=== PATIENT | female | born 1990 | race American Indian/Alaskan Native ===

== ENCOUNTER 2018-10-30 14:10 | Emergency (ER) | payer SELFPAY ==
[2018-10-30] MEDS ORDERED: DUONEB *Not for PRN Use IH ONE (14:20)
[2018-10-30] MEDS ORDERED: ATROVENT IH ONE (14:33)
[2018-10-30] MEDS ORDERED: PROVENTIL IH ONE (14:33)
[2018-10-30] MEDS ORDERED: NACL 0.9% 1000 ML 1,000 ML IV ONE (14:33)
[2018-10-30] MEDS ORDERED: SOLU-Medrol IV ONE (14:34)
[2018-10-30] MEDS ORDERED: MAGNESIUM SULFATE 1 GM in NACL 0.9% 50 ML IV ONE (15:00)
--- NOTE | 2018-10-30 16:12 | XRay Report ---
FINAL REPORT EXAM: XR CHEST 1V AP HISTORY: cough wheeze TECHNIQUE: AP portable view of the chest PRIORS: None. FINDINGS: Lines, tubes, and devices: N/A Lungs and pleura: Trachea is normal in position. Lungs are clear of infiltrate, pleural effusion, vas cular congestion, or pneumothorax. Cardiomediastinal silhouette: Cardiac and mediastinal silhouettes are unremarkable. Other: Bony structures are intact. IMPRESSION: No acute cardiopulmonary process seen.
[2018-10-30 16:51] LABS: Alanine Aminotransferase 9 units/L (7-56); Albumin 3.8 g/dL (3.9-5); BUN/Creatinine Ratio 10; Blood Urea Nitrogen 7 mg/dL (7-17); Calcium 8.6 mg/dL (8.4-10.2); Hemolysis Index 26
[2018-10-30 17:34] VITALS: BP 133/76
--- NOTE | 2018-10-30 17:58 | Emergency Department Report ---
ED Asthma HPI - General Chief Complaint: Adult Asthma Stated Complaint: ASTHMA Time Seen by Provider: 10/30/18 14:33 Source: patient Mode of arrival: Ambulatory Limitations: No Limitations - History of Present Illness Initial Comments: Patient is a 28 year after a female who is here secondary to wheezing. Patient has had some shortness of breath with wheeze for the past 3-5 days. Patient has an albuterol inhaler and nebulizer machine at home but states they're not helping her symptoms. Patient had a cough is nonproductive. Patient denies any chest pain abdominal pain nausea vomiting or diarrhea at this time. Patient has been intubated in the past secondary to an asthma attack - Related Data Previous Rx's Medication Instructions Recorded Last Taken Type ALBUTEROL Inhaler (OR & NICU) 2 puff IH QID PRN #1 inhalation 10/30/18 Unknown Rx [ProAir HFA Inhaler] predniSONE [Deltasone] 10 mg PO .TAPER #21 tab 10/30/18 Unknown Rx Allergies Allergy/AdvReac Type Severity Reaction Status Date / Time No Known Allergies Allergy Verified 10/30/18 16:26 ED Review of Systems ROS: Stated complaint: ASTHMA Other details as noted in HPI Comment: All other systems reviewed and negative ED Past Medical Hx - Past Medical History Previous Medical History?: Yes Hx Asthma: Yes - Surgical History Past Surgical History?: No - Social History Smoking Status: Never Smoker Substance Use Type: None - Medications Home Medications: Home Medications Medication Instructions Recorded Confirmed Last Taken Type ALBUTEROL Inhaler (OR & NICU) 2 puff IH QID PRN #1 inhalation 10/30/18 Unknown Rx [ProAir HFA Inhaler] predniSONE [Deltasone] 10 mg PO .TAPER #21 tab 10/30/18 Unknown Rx ED Physical Exam - General Limitations: No Limitations General appearance: alert, in distress - Head Head exam: Present: atraumatic, normocephalic - Eye Eye exam: Present: normal appearance, PERRL, EOMI - ENT ENT exam: Present: mucous membranes moist - Neck Neck exam: Present: normal inspection - Respiratory Respiratory exam: Present: wheezes. Absent: normal lung sounds bilaterally, respiratory distress, rales, rhonchi, stridor - Cardiovascular Cardiovascular Exam: Present: regular rate, normal rhythm. Absent: systolic murmur, diastolic murmur, rubs, gallop - GI/Abdominal GI/Abdominal exam: Present: soft, normal bowel sounds. Absent: distended, tenderness, guarding, rebound, rigid - Extremities Exam Extremities exam: Present: normal inspection - Back Exam Back exam: Present: normal inspection - Neurological Exam Neurological exam: Present: alert, oriented X3 - Psychiatric Psychiatric exam: Present: normal affect, normal mood - Skin Skin exam: Present: warm, dry, intact, normal color. Absent: rash ED Course Vital Signs 10/30/18 10/30/18 10/30/18 14:13 14:44 16:24 Temperature 98.0 F Pulse Rate 110 H 74 Pulse Rate [ 109 H Anterior Bilateral Throughout] Respiratory 24 16 Rate Respiratory 25 H Rate [Anterior Bilateral Throughout] Blood Pressure 129/65 Blood Pressure 109/68 [Left] O2 Sat by Pulse 97 100 Oximetry 10/30/18 10/30/18 10/30/18 16:27 16:29 17:34 Temperature Pulse Rate 78 68 Pulse Rate [ 76 Anterior Bilateral Throughout] Respiratory 18 16 Rate Respiratory 18 Rate [Anterior Bilateral Throughout] Blood Pressure 109/65 Blood Pressure 133/76 [Left] O2 Sat by Pulse 99 96 Oximetry ED Medical Decision Making - Lab Data Result diagrams: 10/30/18 15:47 Labs 10/30/18 15:47 Sodium 140 Potassium 4.1 Chloride 107.9 H Carbon Dioxide 16 L Anion Gap 20 BUN 7 Creatinine 0.7 Estimated GFR > 60 BUN/Creatinine Ratio 10 Glucose 89 Calcium 8.6 Total Bilirubin 0.30 AST 16 ALT 9 Alkaline Phosphatase 61 Total Protein 6.9 Albumin 3.8 L Albumin/Globulin Ratio 1.2 - Medical Decision Making Patient was started on BiPAP and received hour-long nebulizer treatment. Patient is wheezing improved dramatically. Patient was then weaned off of BiPAP and also weaned off nasal cannula. The patient was monitored and is feeling much improved. Critical care attestation.: If time is entered above; I have spent that time in minutes in the direct care of this critically ill patient, excluding procedure time. ED Disposition Clinical Impression: Asthma Qualifiers: Asthma severity: moderate Asthma complication type: with acute exacerbation Disposition: TO HOME OR SELFCARE Is pt being admited?: No Does the pt Need Aspirin: No Condition: Stable Instructions: Asthma (ED) Referrals: PRIMARY CARE, [Primary Care Provider] - 3-5 Days Time of Disposition: 17:56
== END 2018-10-30 18:41 | disposition home or self-care (01) ==
LOC: ED 14:10
DX: J45.909 Unspecified asthma, uncomplicated (principal)
CPT/HCPCS: 36415; 71045; 80053; 94640; 96365; 96375; 99284; J2930; J3475; J7030

== ENCOUNTER 2018-12-04 16:38 | Emergency (ER) | payer SELFPAY ==
--- NOTE | 2018-12-04 17:03 | Emergency Department Report ---
Chief Complaint: Adult Asthma Stated Complaint: ASTHMA Time Seen by Provider: 12/04/18 17:02 - HPI History of Present Illness: ASTHMA AE PROAIR/NEB PMH ASTHMA ALLERGIES PSH NONE MSE COMPLETED MSE screening note: Focused history and physical exam performed. Due to findings the following was ordered: ED Disposition for MSE Condition: Stable
[2018-12-04 17:04] VITALS: BP 122/79
--- NOTE | 2018-12-04 17:04 | Emergency Department Report ---
Minor Respiratory - HPI Chief Complaint: Adult Asthma Stated Complaint: ASTHMA Time Seen by Provider: 12/04/18 17:02 Duration: 3 Days Pain Location: Chest Severity: mild Minor Respiratory: Yes Able to Tolerate Fluids, Yes Cough, No Rhinorrhea, No Sore Throat, No Ear Pain, No Sick Contacts, No Hemoptysis, No Chest Pain, No Shortness of Breath, No Fever Other History: 28 YO HERE FOR HER ASTHMA MEDS. NO FEVER. NO SPUTUM. ON PROAIR/NEB ED Review of Systems ROS: Stated complaint: ASTHMA Other details as noted in HPI Comment: All other systems reviewed and negative Constitutional: denies: chills, fever Eyes: denies: eye pain ENT: denies: ear pain Respiratory: see HPI, cough, wheezing. denies: orthopnea Cardiovascular: denies: palpitations Endocrine: denies: excessive sweating Gastrointestinal: denies: abdominal pain Genitourinary: denies: dysuria Musculoskeletal: denies: as per HPI Skin: denies: rash Neurological: denies: weakness Psychiatric: denies: depression Hematological/Lymphatic: denies: easy bleeding ED Past Medical Hx - Past Medical History Hx Asthma: Yes - Social History Smoking Status: Never Smoker Substance Use Type: None - Medications Home Medications: Home Medications Medication Instructions Recorded Confirmed Last Taken Type ALBUTEROL Inhaler (OR & NICU) 2 puff IH QID PRN #1 inhalation 12/04/18 Unknown Rx [ProAir HFA Inhaler] Albuterol Sulfate 1.25 mg IH BID PRN #1 box 12/04/18 Unknown Rx Minor Respiratory Exam - Exam General: Vital signs noted. No distress. Alert and acting appropriately. HEENT: Yes Moist Mucous Membranes, No Pharyngeal Erythema, No Pharyngeal Exudates, No Rhinorrhea, No Conjuctival Injection, No Frontal Tenderness, No Maxillary Tenderness Ear: Neither TM Bulge, Neither TM Erythema, Neither EAC Pain, Neither EAC Discharge Neck: Yes Supple, No Adenopathy Lungs: Yes Good Air Exchange, No Wheezes, No Ronchi, No Stridor, No Cough, No Labored Respirations, No Retractions, No Use of Accessory Muscles, No Other Abnormal Lung Sounds Heart: Yes Regular, No Murmur Abdomen: Yes Normal Bowel Sounds, No Tenderness, No Peritoneal Signs Skin: No Rash, No Edema Neurologic: Alert and oriented, no deficits. Musculoskeletal: Unremarkable. ED Course Vital Signs 12/04/18 17:02 Temperature 97.7 F Pulse Rate 75 Respiratory 16 Rate Blood Pressure 122/79 O2 Sat by Pulse 100 Oximetry ED Medical Decision Making - Medical Decision Making MED REFILL Critical care attestation.: If time is entered above; I have spent that time in minutes in the direct care of this critically ill patient, excluding procedure time. ED Disposition Clinical Impression: Asthma, Medication refill Disposition: DC- TO HOME OR SELFCARE Is pt being admited?: No Does the pt Need Aspirin: No Condition: Stable Instructions: Asthma (ED) Prescriptions: ALBUTEROL Inhaler (OR & NICU) [ProAir HFA Inhaler] 2 puff IH QID PRN #1 inhalation PRN Reason: Shortness Of Breath Albuterol Sulfate 1.25 mg IH BID PRN #1 box PRN Reason: Wheezing Referrals: [facility] [Outside] - 3-5 Days Time of Disposition: 17:06
== END 2018-12-04 17:20 | disposition home or self-care (01) ==
LOC: ED 16:38
DX: J45.909 Unspecified asthma, uncomplicated (principal); Z76.0 Encounter for issue of repeat prescription
CPT/HCPCS: 99282

== ENCOUNTER 2018-12-18 12:23 | Emergency (ER) | payer OTHER ==
[2018-12-18] MEDS ORDERED: SOLU-Medrol IM ONE (12:39)
[2018-12-18] MEDS ORDERED: PROVENTIL IH ONE (12:39)
[2018-12-18 12:40] VITALS: BP 113/81
--- NOTE | 2018-12-18 12:40 | Emergency Department Report ---
Chief Complaint: Adult Asthma Stated Complaint: ASTHMA Time Seen by Provider: 12/18/18 12:37 - HPI History of Present Illness: lmp 1 w ago no cig/etoh/drug pmh asthma psh none rx out of inhaler neb asthma AE wheezing but sats are good. MSE Completed MSE screening note: Focused history and physical exam performed. Due to findings the following was ordered: ED Disposition for MSE Condition: Stable
--- NOTE | 2018-12-18 13:13 | Emergency Department Report ---
Minor Respiratory - HPI Chief Complaint: Adult Asthma Stated Complaint: ASTHMA Time Seen by Provider: 12/18/18 12:37 Duration: 1 Day Pain Location: Chest Severity: moderate Minor Respiratory: Yes Able to Tolerate Fluids, Yes Shortness of Breath, No Rhinorrhea, No Sore Throat, No Ear Pain, No Cough, No Sick Contacts, No Hemoptysis, No Chest Pain, No Fever Other History: 28 YO FEMALE WITH CC SOB- ASTHMATIC OUT OF HER INHALERS. NO FEVER. ED Review of Systems ROS: Stated complaint: ASTHMA Other details as noted in HPI Comment: All other systems reviewed and negative Eyes: denies: eye pain ENT: denies: throat pain Respiratory: see HPI, cough, shortness of breath, wheezing Cardiovascular: denies: chest pain Endocrine: denies: excessive sweating Gastrointestinal: denies: nausea Genitourinary: denies: urgency Musculoskeletal: denies: back pain Skin: denies: as per HPI, lesions Neurological: denies: weakness Hematological/Lymphatic: denies: easy bleeding ED Past Medical Hx - Past Medical History Previous Medical History?: Yes Hx Asthma: Yes - Surgical History Past Surgical History?: No - Family History Family history: no significant - Social History Smoking Status: Never Smoker Substance Use Type: None - Medications Home Medications: Home Medications Medication Instructions Recorded Confirmed Last Taken Type ALBUTEROL Inhaler (OR & NICU) 2 puff IH QID PRN #1 inhalation 12/18/18 Unknown Rx [ProAir HFA Inhaler] Albuterol Sulfate 1.25 mg IH BID PRN #1 box 12/18/18 Unknown Rx Albuterol Sulfate [Ventolin HFA] 2 puff IH Q4H PRN #1 hfa.aer.ad 12/18/18 Unknown Rx Azithromycin [Zithromax Z-MANISH] 250 mg PO DAILY #6 tablet 12/18/18 Unknown Rx predniSONE [Deltasone] 20 mg PO DAILY #5 tablet 12/18/18 Unknown Rx Minor Respiratory Exam - Exam General: Vital signs noted. No distress. Alert and acting appropriately. HEENT: Yes Moist Mucous Membranes, No Pharyngeal Erythema, No Pharyngeal Exudates, No Rhinorrhea, No Conjuctival Injection, No Frontal Tenderness, No Maxillary Tenderness Ear: Neither TM Bulge, Neither TM Erythema, Neither EAC Pain, Neither EAC Discharge Neck: Yes Supple, No Adenopathy Lungs: Yes Good Air Exchange, Yes Wheezes (B), No Ronchi, No Stridor, No Cough, No Labored Respirations, No Retractions, No Use of Accessory Muscles, No Other Abnormal Lung Sounds Heart: Yes Regular, No Murmur Abdomen: Yes Normal Bowel Sounds, No Tenderness, No Peritoneal Signs Skin: No Rash, No Edema Neurologic: Alert and oriented, no deficits. Musculoskeletal: Unremarkable. ED Course Vital Signs 12/18/18 12/18/18 12:38 12:55 Temperature 97.7 F Pulse Rate 62 Pulse Rate [ 59 L Anterior Bilateral Throughout] Respiratory 24 Rate Respiratory 20 Rate [Anterior Bilateral Throughout] Blood Pressure 113/81 O2 Sat by Pulse 100 Oximetry ED Medical Decision Making - Medical Decision Making DUONEB SOLUMEDROL NO FEVER COUGH WITHOUT PURULENT SPUTUM TREATED IN TRIAGE WHEEZING DEC P RT TREATMENT- CTA BILATERAL SAT 100% ROOM AIR DC HOME WITH DC PLAN OF CARE Critical care attestation.: If time is entered above; I have spent that time in minutes in the direct care of this critically ill patient, excluding procedure time. ED Disposition Clinical Impression: Asthma, Medication refill Disposition: DC-01 TO HOME OR SELFCARE Is pt being admited?: No Does the pt Need Aspirin: No Condition: Stable Instructions: Asthma (ED) Additional Instructions: DIET TOLERATED MEDS ORDERED TODAY FOLLOW UP WITH PCP REFERRAL BELOW AVOID TRIGGERS NEBULIZER AND INHALER PRESCRIBED Prescriptions: Albuterol Sulfate 1.25 mg IH BID PRN #1 box PRN Reason: Wheezing predniSONE [Deltasone] 20 mg PO DAILY #5 tablet ALBUTEROL Inhaler (OR & NICU) [ProAir HFA Inhaler] 2 puff IH QID PRN #1 inhalation PRN Reason: Shortness Of Breath Albuterol Sulfate [Ventolin HFA] 2 puff IH Q4H PRN #1 hfa.aer.ad PRN Reason: Shortness Of Breath Azithromycin [Zithromax Z-MANISH] 250 mg PO DAILY #6 tablet Referrals: LONNY GONZALEZ MD [Primary Care Provider] - 3-5 Days Time of Disposition: 13:15
== END 2018-12-18 13:32 | disposition home or self-care (01) ==
LOC: ED 12:23
DX: J45.909 Unspecified asthma, uncomplicated (principal); Z76.0 Encounter for issue of repeat prescription
CPT/HCPCS: 94640; 96372; 99282; J2930

== ENCOUNTER 2019-01-17 12:05 | Emergency (ER) | payer OTHER ==
[2019-01-17 12:20] VITALS: BP 120/65
--- NOTE | 2019-01-17 12:23 | Emergency Department Report ---
ED Recheck HPI - General Chief Complaint: Recheck/Abnormal Lab/Rx Stated Complaint: MEDICATION REFILL Time Seen by Provider: 01/17/19 12:18 Source: patient Mode of arrival: Ambulatory Limitations: No Limitations - History of Present Illness Initial Comments: This is a 28-year-old female that presents to the ED for medication refill. Patient stated has been out of her medications of albuterol inhaler. Denies any shortness of breathe, fever, chills, headache, nausea, vomiting, chest pain or SOB. Patient denies any wheezing. Denies any allergies. Denies any symptoms or any other complaints. MD Complaint: medication refill request -: days(s) Returns Today for: request for prescription Symptoms Since Prior Visit: no new symptoms Associated Symptoms: none. denies: fever, chills, chest pain, shortness of breath, rash, malaise, nasuea, abdominal pain - Related Data Previous Rx's Medication Instructions Recorded Last Taken Type ALBUTEROL Inhaler (OR & NICU) 2 puff IH QID PRN #1 inhalation 12/18/18 Unknown Rx [ProAir HFA Inhaler] Albuterol Sulfate 1.25 mg IH BID PRN #1 box 12/18/18 Unknown Rx Albuterol Sulfate [Ventolin HFA] 2 puff IH Q4H PRN #1 hfa.aer.ad 12/18/18 Unknown Rx Azithromycin [Zithromax Z-MANISH] 250 mg PO DAILY #6 tablet 12/18/18 Unknown Rx predniSONE [Deltasone] 20 mg PO DAILY #5 tablet 12/18/18 Unknown Rx ALBUTEROL Inhaler(NF) [VENTOLIN 2 puff IH Q4-6H PRN #1 inha 01/17/19 Unknown Rx Inhaler(NF)] ALBUTEROL NEB's [Proventil 0.083% 2.5 mg IH TID PRN #1 box 01/17/19 Unknown Rx NEBS] Allergies Allergy/AdvReac Type Severity Reaction Status Date / Time No Known Allergies Allergy Verified 10/30/18 16:26 ED Review of Systems ROS: Stated complaint: MEDICATION REFILL Other details as noted in HPI Constitutional: denies: chills, fever Eyes: denies: eye pain, eye discharge, vision change ENT: denies: ear pain, throat pain Respiratory: denies: cough, shortness of breath, wheezing Cardiovascular: denies: chest pain, palpitations Endocrine: no symptoms reported Gastrointestinal: denies: abdominal pain, nausea, diarrhea Genitourinary: denies: urgency, dysuria, discharge Musculoskeletal: denies: back pain, joint swelling, arthralgia Skin: denies: rash, lesions Neurological: denies: headache, weakness, paresthesias Psychiatric: denies: anxiety, depression Hematological/Lymphatic: denies: easy bleeding, easy bruising ED Past Medical Hx - Past Medical History Hx Asthma: Yes - Social History Smoking Status: Never Smoker Substance Use Type: None - Medications Home Medications: Home Medications Medication Instructions Recorded Confirmed Last Taken Type ALBUTEROL Inhaler (OR & NICU) 2 puff IH QID PRN #1 inhalation 12/18/18 Unknown Rx [ProAir HFA Inhaler] Albuterol Sulfate 1.25 mg IH BID PRN #1 box 12/18/18 Unknown Rx Albuterol Sulfate [Ventolin HFA] 2 puff IH Q4H PRN #1 hfa.aer.ad 12/18/18 Unknown Rx Azithromycin [Zithromax Z-MANISH] 250 mg PO DAILY #6 tablet 12/18/18 Unknown Rx predniSONE [Deltasone] 20 mg PO DAILY #5 tablet 12/18/18 Unknown Rx ALBUTEROL Inhaler(NF) [VENTOLIN 2 puff IH Q4-6H PRN #1 inha 01/17/19 Unknown Rx Inhaler(NF)] ALBUTEROL NEB's [Proventil 0.083% 2.5 mg IH TID PRN #1 box 01/17/19 Unknown Rx NEBS] ED Physical Exam - General Limitations: No Limitations General appearance: alert, in no apparent distress - Head Head exam: Present: atraumatic, normocephalic - Neck Neck exam: Present: normal inspection, full ROM - Respiratory Respiratory exam: Present: normal lung sounds bilaterally. Absent: respiratory distress, wheezes, rales, rhonchi, stridor, chest wall tenderness, accessory muscle use, decreased breath sounds, prolonged expiratory - Cardiovascular Cardiovascular Exam: Present: regular rate, normal rhythm, normal heart sounds. Absent: bradycardia, tachycardia, irregular rhythm, systolic murmur, diastolic murmur, rubs, gallop - Extremities Exam Extremities exam: Present: normal inspection, full ROM - Back Exam Back exam: Present: normal inspection, full ROM - Neurological Exam Neurological exam: Present: alert, oriented X3 - Psychiatric Psychiatric exam: Present: normal affect, normal mood - Skin Skin exam: Present: warm, dry, intact, normal color. Absent: rash ED Course - Reevaluation(s) Reevaluation #1: 01/17/19 12:21 Patient is speaking in full sentences with no signs of distress noted. Critical care attestation.: If time is entered above; I have spent that time in minutes in the direct care of this critically ill patient, excluding procedure time. ED Disposition Clinical Impression: Medication refill Disposition: DC-01 TO HOME OR SELFCARE Is pt being admited?: No Does the pt Need Aspirin: No Condition: Stable Instructions: Asthma (ED) Additional Instructions: Follow-up with a primary care doctor in 3-5 days or if symptoms worsen and continue return to emergency room as soon as possible. Prescriptions: ALBUTEROL NEB's [Proventil 0.083% NEBS] 2.5 mg IH TID PRN #1 box PRN Reason: Wheezing ALBUTEROL Inhaler(NF) [VENTOLIN Inhaler(NF)] 2 puff IH Q4-6H PRN #1 inha PRN Reason: shortness of breathe Referrals: PRIMARY CARE, [Referring] - 3-5 Days EVERETTE JOHNSON MD [Staff Physician] - 3-5 Days [facility] [place] [Outside] - 3-5 Days [facility] [Outside] - 3-5 Days Forms: Work/School Release Form(ED)
== END 2019-01-17 12:30 | disposition home or self-care (01) ==
LOC: ED 12:05
DX: J45.909 Unspecified asthma, uncomplicated (principal); Z76.0 Encounter for issue of repeat prescription
CPT/HCPCS: 99282

== ENCOUNTER 2019-02-15 09:46 | Emergency (ER) | payer OTHER ==
[2019-02-15 09:57] VITALS: BP 121/77
--- NOTE | 2019-02-15 11:35 | Emergency Department Report ---
Chief Complaint: Adult Asthma Stated Complaint: ASTHMA Time Seen by Provider: 02/15/19 11:34 - HPI History of Present Illness: MED REFILL ASTHMA - Exam Vital Signs: Vital Signs 02/15/19 09:56 Temperature 98.4 F Pulse Rate 57 L Respiratory 16 Rate Blood Pressure 121/77 [Right] O2 Sat by Pulse 100 Oximetry MSE screening note: Focused history and physical exam performed. Due to findings the following was ordered: ED Disposition for MSE Condition: Stable Referrals: KEYA RAUSCH MD [Primary Care Provider] - 3-5 Days
--- NOTE | 2019-02-15 11:56 | Emergency Department Report ---
ED Asthma HPI - General Chief Complaint: Adult Asthma Stated Complaint: ASTHMA Time Seen by Provider: 02/15/19 11:34 Source: patient Mode of arrival: Ambulatory Limitations: No Limitations - History of Present Illness Initial Comments: Patient is a 28-year-old [place] female who is presenting status post asthma exacerbation. Patient took her last albuterol treatment at home prior to arrival. Patient is been having cough congestion for the last several days. Patient denies any fevers chills at this time. Patient is in need of refill of her medications. - Related Data Previous Rx's Medication Instructions Recorded Last Taken Type ALBUTEROL Inhaler (OR & NICU) 2 puff IH QID PRN #1 inhalation 12/18/18 Unknown Rx [ProAir HFA Inhaler] Albuterol Sulfate 1.25 mg IH BID PRN #1 box 12/18/18 Unknown Rx Albuterol Sulfate [Ventolin HFA] 2 puff IH Q4H PRN #1 hfa.aer.ad 12/18/18 Unknown Rx Azithromycin [Zithromax Z-MANISH] 250 mg PO DAILY #6 tablet 12/18/18 Unknown Rx predniSONE [Deltasone] 20 mg PO DAILY #5 tablet 12/18/18 Unknown Rx ALBUTEROL Inhaler(NF) [VENTOLIN 2 puff IH Q4-6H PRN #1 inha 01/17/19 Unknown Rx Inhaler(NF)] ALBUTEROL NEB's [Proventil 0.083% 2.5 mg IH TID PRN #1 box 01/17/19 Unknown Rx NEBS] ALBUTEROL Inhaler(NF) [VENTOLIN 2 puff IH Q4HRT #1 inha 02/15/19 Unknown Rx Inhaler(NF)] ALBUTEROL NEB's [Proventil 0.083% 2.5 mg IH TID PRN #20 neb 02/15/19 Unknown Rx NEBS] predniSONE [Deltasone] 20 mg PO QDAY #5 tab 02/15/19 Unknown Rx Allergies Allergy/AdvReac Type Severity Reaction Status Date / Time No Known Allergies Allergy Verified 02/15/19 09:47 ED Review of Systems ROS: Stated complaint: ASTHMA Other details as noted in HPI Comment: All other systems reviewed and negative ED Past Medical Hx - Past Medical History Hx Asthma: Yes - Surgical History Past Surgical History?: No - Social History Smoking Status: Never Smoker Substance Use Type: None - Medications Home Medications: Home Medications Medication Instructions Recorded Confirmed Last Taken Type ALBUTEROL Inhaler (OR & NICU) 2 puff IH QID PRN #1 inhalation 12/18/18 Unknown Rx [ProAir HFA Inhaler] Albuterol Sulfate 1.25 mg IH BID PRN #1 box 12/18/18 Unknown Rx Albuterol Sulfate [Ventolin HFA] 2 puff IH Q4H PRN #1 hfa.aer.ad 12/18/18 Unknown Rx Azithromycin [Zithromax Z-MANISH] 250 mg PO DAILY #6 tablet 12/18/18 Unknown Rx predniSONE [Deltasone] 20 mg PO DAILY #5 tablet 12/18/18 Unknown Rx ALBUTEROL Inhaler(NF) [VENTOLIN 2 puff IH Q4-6H PRN #1 inha 01/17/19 Unknown Rx Inhaler(NF)] ALBUTEROL NEB's [Proventil 0.083% 2.5 mg IH TID PRN #1 box 01/17/19 Unknown Rx NEBS] ALBUTEROL Inhaler(NF) [VENTOLIN 2 puff IH Q4HRT #1 inha 02/15/19 Unknown Rx Inhaler(NF)] ALBUTEROL NEB's [Proventil 0.083% 2.5 mg IH TID PRN #20 neb 02/15/19 Unknown Rx NEBS] predniSONE [Deltasone] 20 mg PO QDAY #5 tab 02/15/19 Unknown Rx ED Physical Exam - General Limitations: No Limitations General appearance: alert, in no apparent distress - Head Head exam: Present: atraumatic, normocephalic - Eye Eye exam: Present: normal appearance - ENT ENT exam: Present: mucous membranes moist - Neck Neck exam: Present: normal inspection - Respiratory Respiratory exam: Present: normal lung sounds bilaterally. Absent: respiratory distress, wheezes, rales, rhonchi - Cardiovascular Cardiovascular Exam: Present: regular rate, normal rhythm. Absent: systolic murmur, diastolic murmur, rubs, gallop - GI/Abdominal GI/Abdominal exam: Present: soft, normal bowel sounds. Absent: distended, tenderness, guarding, rebound - Extremities Exam Extremities exam: Present: normal inspection - Back Exam Back exam: Present: normal inspection - Neurological Exam Neurological exam: Present: alert, oriented X3 - Psychiatric Psychiatric exam: Present: normal affect, normal mood - Skin Skin exam: Present: warm, dry, intact, normal color. Absent: rash ED Course Vital Signs 02/15/19 09:56 Temperature 98.4 F Pulse Rate 57 L Respiratory 16 Rate Blood Pressure 121/77 [Right] O2 Sat by Pulse 100 Oximetry ED Medical Decision Making - Medical Decision Making Patient be restarted on her albuterol and patient be discharged home. Critical care attestation.: If time is entered above; I have spent that time in minutes in the direct care of this critically ill patient, excluding procedure time. ED Disposition Clinical Impression: Asthma exacerbation Qualifiers: Asthma severity: mild Asthma persistence: intermittent Qualified Code(s): J45.21 - Mild intermittent asthma with (acute) exacerbation Disposition: -01 TO HOME OR SELFCARE Is pt being admited?: No Does the pt Need Aspirin: No Condition: Stable Instructions: Asthma (ED) Referrals: KEYA RAUSCH MD [Primary Care Provider] - 3-5 Days Time of Disposition: 11:56
== END 2019-02-15 12:23 | disposition home or self-care (01) ==
LOC: ED 09:46
DX: J45.901 Unspecified asthma with (acute) exacerbation (principal)
CPT/HCPCS: 99281

== ENCOUNTER 2019-03-26 21:59 | Emergency (ER) | payer SELFPAY ==
[2019-03-26] MEDS ORDERED: DUONEB *Not for PRN Use IH ONE (22:36)
[2019-03-26] MEDS ORDERED: DELTASONE PO STA (22:36)
--- NOTE | 2019-03-26 22:38 | Emergency Department Report ---
Blank Doc - Documentation Documentation: 28 y/o with uncontrolled asthma and recently ran out of medications presents to ED c/o wheezing and sob. Plan medicaitons and xray. re-evaluation after treatment
--- NOTE | 2019-03-26 23:45 | Emergency Department Report ---
ED Shortness of Breath HPI - General Chief Complaint: Adult Asthma Stated Complaint: SOB Time Seen by Provider: 03/26/19 23:30 Source: patient Mode of arrival: Ambulatory Limitations: No Limitations - History of Present Illness Initial Comments: Patient is a 28-year-old female that presents emergency room for shortness of breath or wheezing. Patient states she has asthma but ran out of her asthma medications one week ago. Patient states she has not seen a doctor since moving here a year ago. Patient states she's just been seen in the ER for refills of her asthma medications. Patient states her shortness of breath is better with rest and medications. Patient states that her shortness of breath is worse with exertion. Patient denies chest pain. Patient denies fever. Patient denies chills. Patient denies recent upper respiratory symptoms. Patient states she received a albuterol treatment in triage and she states she feels much better. Patient states her symptoms have resolved. MD Complaint: shortness of breath -: Sudden Severity: severe Consistency: now resolved Improves With: rest, bronchodilators Worsens With: exertion Known History Of: asthma Context: medication noncompliance Associated Symptoms: cough Treatments Prior to Arrival: none - Related Data Home Oxygen Therapy: No Previous Rx's Medication Instructions Recorded Last Taken Type ALBUTEROL Inhaler (OR & NICU) 2 puff IH QID PRN #1 inhalation 12/18/18 Unknown Rx [ProAir HFA Inhaler] Albuterol Sulfate 1.25 mg IH BID PRN #1 box 12/18/18 Unknown Rx Albuterol Sulfate [Ventolin HFA] 2 puff IH Q4H PRN #1 hfa.aer.ad 12/18/18 Unknown Rx Azithromycin [Zithromax Z-MANISH] 250 mg PO DAILY #6 tablet 12/18/18 Unknown Rx predniSONE [Deltasone] 20 mg PO DAILY #5 tablet 12/18/18 Unknown Rx ALBUTEROL Inhaler(NF) [VENTOLIN 2 puff IH Q4-6H PRN #1 inha 01/17/19 Unknown Rx Inhaler(NF)] ALBUTEROL Inhaler(NF) [VENTOLIN 2 puff IH Q4HRT #1 inha 02/15/19 Unknown Rx Inhaler(NF)] ALBUTEROL NEB's [Proventil 0.083% 2.5 mg IH TID PRN #20 neb 02/15/19 Unknown Rx NEBS] predniSONE [Deltasone] 20 mg PO QDAY #5 tab 02/15/19 Unknown Rx ALBUTEROL Inhaler (OR & NICU) 2 puff IH QID PRN #1 inh 03/26/19 Unknown Rx [Proair] ALBUTEROL NEB's [Proventil 0.083% 2.5 mg IH TID PRN #1 box 03/26/19 Unknown Rx NEBS] Allergies Allergy/AdvReac Type Severity Reaction Status Date / Time No Known Allergies Allergy Verified 02/15/19 09:47 ED Review of Systems ROS: Stated complaint: SOB Other details as noted in HPI Constitutional: denies: chills, fever Eyes: denies: eye pain, eye discharge, vision change ENT: denies: ear pain, throat pain Respiratory: cough, shortness of breath, wheezing Cardiovascular: denies: chest pain, palpitations Endocrine: no symptoms reported Gastrointestinal: denies: abdominal pain, nausea, diarrhea Genitourinary: denies: urgency, dysuria, discharge Musculoskeletal: denies: back pain, joint swelling, arthralgia Skin: denies: rash, lesions Neurological: denies: headache, weakness, paresthesias Psychiatric: denies: anxiety, depression Hematological/Lymphatic: denies: easy bleeding, easy bruising ED Past Medical Hx - Past Medical History Previous Medical History?: Yes Hx Asthma: Yes Additional medical history: Bronchitis - Surgical History Past Surgical History?: Yes - Family History Family history: no significant - Social History Smoking Status: Never Smoker Substance Use Type: None - Medications Home Medications: Home Medications Medication Instructions Recorded Confirmed Last Taken Type ALBUTEROL Inhaler (OR & NICU) 2 puff IH QID PRN #1 inhalation 12/18/18 Unknown Rx [ProAir HFA Inhaler] Albuterol Sulfate 1.25 mg IH BID PRN #1 box 12/18/18 Unknown Rx Albuterol Sulfate [Ventolin HFA] 2 puff IH Q4H PRN #1 hfa.aer.ad 12/18/18 Unknown Rx Azithromycin [Zithromax Z-MANISH] 250 mg PO DAILY #6 tablet 12/18/18 Unknown Rx predniSONE [Deltasone] 20 mg PO DAILY #5 tablet 12/18/18 Unknown Rx ALBUTEROL Inhaler(NF) [VENTOLIN 2 puff IH Q4-6H PRN #1 inha 01/17/19 Unknown Rx Inhaler(NF)] ALBUTEROL Inhaler(NF) [VENTOLIN 2 puff IH Q4HRT #1 inha 02/15/19 Unknown Rx Inhaler(NF)] ALBUTEROL NEB's [Proventil 0.083% 2.5 mg IH TID PRN #20 neb 02/15/19 Unknown Rx NEBS] predniSONE [Deltasone] 20 mg PO QDAY #5 tab 02/15/19 Unknown Rx ALBUTEROL Inhaler (OR & NICU) 2 puff IH QID PRN #1 inh 03/26/19 Unknown Rx [Proair] ALBUTEROL NEB's [Proventil 0.083% 2.5 mg IH TID PRN #1 box 03/26/19 Unknown Rx NEBS] ED Physical Exam - General Limitations: No Limitations General appearance: alert, in no apparent distress - Head Head exam: Present: atraumatic, normocephalic - Eye Eye exam: Present: normal appearance - ENT ENT exam: Present: mucous membranes moist - Neck Neck exam: Present: normal inspection - Respiratory Respiratory exam: Present: normal lung sounds bilaterally. Absent: respiratory distress, wheezes, rales, rhonchi - Cardiovascular Cardiovascular Exam: Present: regular rate, normal rhythm. Absent: systolic murmur, diastolic murmur, rubs, gallop - GI/Abdominal GI/Abdominal exam: Present: soft, normal bowel sounds - Extremities Exam Extremities exam: Present: normal inspection - Back Exam Back exam: Present: normal inspection - Neurological Exam Neurological exam: Present: alert, oriented X3 - Psychiatric Psychiatric exam: Present: normal affect, normal mood - Skin Skin exam: Present: warm, dry, intact, normal color. Absent: rash ED Course Vital Signs 03/26/19 03/26/19 03/27/19 22:04 23:41 00:21 Temperature 97.8 F 98 F 98 F Pulse Rate 67 68 66 Respiratory 18 16 16 Rate Blood Pressure 117/75 Blood Pressure 104/68 112/72 [Left] O2 Sat by Pulse 99 99 99 Oximetry - Reevaluation(s) Reevaluation #1: Discussed all results with patient. Patient is stable for discharge. Patient will be discharged home. Patient agrees to plan of care. Patient given discharge instructions. Patient voiced understanding of discharge instructions. 03/26/19 23:47 ED Medical Decision Making - Radiology Data Radiology results: report reviewed interpreted by me: No acute findings on chest x-ray - Medical Decision Making Patient is a 28-year-old female that presents emergency room for shortness of breath and wheezing. Patient received 1 breathing treatment and symptoms improved. Patient essentially came to the ER for refill of her medications. Patient will be given a refill of her albuterol inhaler and nebulizer solutions. Patient's chest x-ray negative. Patient responded well to treatment. Patient stable on discharge. Patient was discharged home. Patient given discharge instructions. - Differential Diagnosis shortness of breath. Noncompliance. Asthma. Wheezing. Critical care attestation.: If time is entered above; I have spent that time in minutes in the direct care of this critically ill patient, excluding procedure time. ED Disposition Clinical Impression: SOB (shortness of breath) Asthma Qualifiers: Asthma severity: mild Asthma persistence: intermittent Asthma complication type: uncomplicated Qualified Code(s): J45.20 - Mild intermittent asthma, uncomplicated Disposition: TO HOME OR SELFCARE Is pt being admited?: No Does the pt Need Aspirin: No Condition: Stable Instructions: Asthma (ED) Additional Instructions: Patient to follow-up with primary care in 2-3 days. Patient to take Tylenol or ibuprofen when necessary for pain. Patient to return to ER if condition worsens. Patient to take meds as directed. Patient to increase water. Patient to rest. Prescriptions: ALBUTEROL Inhaler (OR & NICU) [Proair] 2 puff IH QID PRN #1 inh PRN Reason: Shortness Of Breath ALBUTEROL NEB's [Proventil 0.083% NEBS] 2.5 mg IH TID PRN #1 box PRN Reason: Wheezing Referrals: KEYA RAUSCH MD [Primary Care Provider] - 3-5 Days Time of Disposition: 23:50
[2019-03-27 00:22] VITALS: BP 112/72
--- NOTE | 2019-03-27 02:15 | XRay Report ---
PROCEDURE: XR CHEST ROUTINE 2V TECHNIQUE: PA and lateral chest radiographs were obtained. HISTORY: sob, weezing COMPARISONS: October 30. FINDINGS: Heart: Normal. Mediastinum/Vessels: Normal. Lungs/Pleural space: Normal. Bony thorax: No acute osseous abnormality. IMPRESSION: No radiographic evidence of acute cardiopulmonary disease. This document is electronically signed by Darinel Silva MD., March 27 2019 02:13:48 AM ET
== END 2019-03-27 00:21 | disposition home or self-care (01) ==
LOC: ED 21:59
DX: J45.909 Unspecified asthma, uncomplicated (principal); Z79.899 Other long term (current) drug therapy
CPT/HCPCS: 71046; 94640; 99284; J7512

== ENCOUNTER 2019-08-04 07:16 | Emergency (ER) | payer SELFPAY ==
[2019-08-04] MEDS ORDERED: DUONEB *Not for PRN Use IH ONE ×2 (07:36)
--- NOTE | 2019-08-04 08:24 | Emergency Department Report ---
ED Asthma HPI - General Chief Complaint: Adult Asthma Stated Complaint: ASTHMA Time Seen by Provider: 08/04/19 08:11 Source: patient Mode of arrival: Ambulatory Limitations: No Limitations - History of Present Illness Initial Comments: Patient is a 29 Negative female with past medical history of asthma who is presenting with 2 days of wheezing with dry cough. Patient denies fever. Patient is run out of her albuterol. Patient is complaining of some mild shortness of breath. MD Complaint: "asthma attack", shortness of breath Asthma History: childhood onset Context: ran out of meds Associated Symptoms: denies: fever, chest pain, hemoptysis, leg edema, syncope - Related Data Previous Rx's Medication Instructions Recorded Last Taken Type ALBUTEROL Inhaler (OR & NICU) 2 puff IH QID PRN #1 inhalation 12/18/18 Unknown Rx [ProAir HFA Inhaler] Albuterol Sulfate 1.25 mg IH BID PRN #1 box 12/18/18 Unknown Rx Albuterol Sulfate [Ventolin HFA] 2 puff IH Q4H PRN #1 hfa.aer.ad 12/18/18 Unknown Rx Azithromycin [Zithromax Z-MANISH] 250 mg PO DAILY #6 tablet 12/18/18 Unknown Rx predniSONE [Deltasone] 20 mg PO DAILY #5 tablet 12/18/18 Unknown Rx ALBUTEROL Inhaler(NF) [VENTOLIN 2 puff IH Q4-6H PRN #1 inha 01/17/19 Unknown Rx Inhaler(NF)] ALBUTEROL Inhaler(NF) [VENTOLIN 2 puff IH Q4HRT #1 inha 02/15/19 Unknown Rx Inhaler(NF)] ALBUTEROL NEB's [Proventil 0.083% 2.5 mg IH TID PRN #20 neb 02/15/19 Unknown Rx NEBS] predniSONE [Deltasone] 20 mg PO QDAY #5 tab 02/15/19 Unknown Rx ALBUTEROL Inhaler (OR & NICU) 2 puff IH QID PRN #1 inh 03/26/19 Unknown Rx [Proair] ALBUTEROL NEB's [Proventil 0.083% 2.5 mg IH TID PRN #1 box 03/26/19 Unknown Rx NEBS] ALBUTEROL Inhaler (OR & NICU) 2 puff IH QID PRN #1 inhalation 08/04/19 Unknown Rx [ProAir HFA Inhaler] ALBUTEROL NEB's [Proventil 0.083% 2.5 mg IH TID PRN #20 neb 08/04/19 Unknown Rx NEBS] predniSONE [Deltasone] 20 mg PO QDAY #5 tab 08/04/19 Unknown Rx Allergies Allergy/AdvReac Type Severity Reaction Status Date / Time No Known Allergies Allergy Verified 08/04/19 07:19 ED Review of Systems ROS: Stated complaint: ASTHMA Other details as noted in HPI Comment: All other systems reviewed and negative ED Past Medical Hx - Past Medical History Hx Asthma: Yes Additional medical history: Bronchitis - Surgical History Past Surgical History?: No - Social History Smoking Status: Never Smoker Substance Use Type: None - Medications Home Medications: Home Medications Medication Instructions Recorded Confirmed Last Taken Type ALBUTEROL Inhaler (OR & NICU) 2 puff IH QID PRN #1 inhalation 12/18/18 Unknown Rx [ProAir HFA Inhaler] Albuterol Sulfate 1.25 mg IH BID PRN #1 box 12/18/18 Unknown Rx Albuterol Sulfate [Ventolin HFA] 2 puff IH Q4H PRN #1 hfa.aer.ad 12/18/18 Unknown Rx Azithromycin [Zithromax Z-MANISH] 250 mg PO DAILY #6 tablet 12/18/18 Unknown Rx predniSONE [Deltasone] 20 mg PO DAILY #5 tablet 12/18/18 Unknown Rx ALBUTEROL Inhaler(NF) [VENTOLIN 2 puff IH Q4-6H PRN #1 inha 01/17/19 Unknown Rx Inhaler(NF)] ALBUTEROL Inhaler(NF) [VENTOLIN 2 puff IH Q4HRT #1 inha 02/15/19 Unknown Rx Inhaler(NF)] ALBUTEROL NEB's [Proventil 0.083% 2.5 mg IH TID PRN #20 neb 02/15/19 Unknown Rx NEBS] predniSONE [Deltasone] 20 mg PO QDAY #5 tab 02/15/19 Unknown Rx ALBUTEROL Inhaler (OR & NICU) 2 puff IH QID PRN #1 inh 03/26/19 Unknown Rx [Proair] ALBUTEROL NEB's [Proventil 0.083% 2.5 mg IH TID PRN #1 box 03/26/19 Unknown Rx NEBS] ALBUTEROL Inhaler (OR & NICU) 2 puff IH QID PRN #1 inhalation 08/04/19 Unknown Rx [ProAir HFA Inhaler] ALBUTEROL NEB's [Proventil 0.083% 2.5 mg IH TID PRN #20 neb 08/04/19 Unknown Rx NEBS] predniSONE [Deltasone] 20 mg PO QDAY #5 tab 08/04/19 Unknown Rx ED Physical Exam - General Limitations: No Limitations General appearance: alert, in no apparent distress - Head Head exam: Present: atraumatic, normocephalic - Eye Eye exam: Present: normal appearance - ENT ENT exam: Present: mucous membranes moist - Neck Neck exam: Present: normal inspection - Respiratory Respiratory exam: Present: wheezes. Absent: normal lung sounds bilaterally, respiratory distress, rales, rhonchi - Cardiovascular Cardiovascular Exam: Present: regular rate, normal rhythm, normal heart sounds. Absent: systolic murmur, diastolic murmur, rubs, gallop - GI/Abdominal GI/Abdominal exam: Present: soft, normal bowel sounds. Absent: distended, tenderness, guarding, rebound - Extremities Exam Extremities exam: Present: normal inspection - Back Exam Back exam: Present: normal inspection - Neurological Exam Neurological exam: Present: alert, oriented X3 - Psychiatric Psychiatric exam: Present: normal affect, normal mood - Skin Skin exam: Present: warm, dry, intact, normal color. Absent: rash ED Course Vital Signs 08/04/19 08/04/19 07:31 07:37 Temperature 98 F Pulse Rate 66 Respiratory 16 20 Rate Blood Pressure 115/81 O2 Sat by Pulse 100 Oximetry ED Medical Decision Making - Medical Decision Making Patient received a nebulized treatment here in emergency department is feeling much better. Wheezing has resolved. Patient be discharged home. Critical care attestation.: If time is entered above; I have spent that time in minutes in the direct care of this critically ill patient, excluding procedure time. ED Disposition Clinical Impression: Asthma exacerbation Qualifiers: Asthma severity: mild Asthma persistence: intermittent Qualified Code(s): J45.21 - Mild intermittent asthma with (acute) exacerbation Disposition: TO HOME OR SELFCARE Is pt being admited?: No Does the pt Need Aspirin: No Condition: Stable Instructions: Asthma (ED) Referrals: KEYA RAUSCH MD [Referring] - 3-5 Days Time of Disposition: 08:24
[2019-08-04 08:38] VITALS: BP 118/80
== END 2019-08-04 08:37 | disposition home or self-care (01) ==
LOC: ED 07:16
DX: J45.901 Unspecified asthma with (acute) exacerbation (principal); Z79.899 Other long term (current) drug therapy

== ENCOUNTER 2019-12-23 20:02 | Emergency (ER) | payer SELFPAY ==
[2019-12-23] MEDS ORDERED: methylPREDNISolone Sod Succinate 125 MG/2 ML INJ IM ONE (23:31)
[2019-12-23] MEDS ORDERED: IPRATROPIUM/ALBUTEROL SULFATE 3 ML AMPUL.NEB IH ONE (23:31)
[2019-12-24 01:17] LABS: Bacteria,Urine 1+ /HPF (Negative); Bilirubin,Urine NEG (Negative); Blood,Urine NEG (Negative); Color,Urine Yellow (Yellow); HCG Qualitative,Urine Negative (Negative); Mucus,Urine 2+ /HPF; Protein,Urine <15 mg/dL mg/dL (Negative); Urobilinogen,Urine < 2.0 mg/dL (<2.0)
--- NOTE | 2019-12-24 01:24 | Emergency Department Report ---
- General Chief Complaint: Urogenital-Female Stated Complaint: ASTHMA/THIGH INFECTION Source: patient Mode of arrival: Ambulatory Limitations: No Limitations - History of Present Illness Initial Comments: Patient is a nulliparous 29-year-old -[place] female with no past medical history except asthma who presents to the ED with acute onset persistent nasal and sinus congestion, persistent dry cough, wheezing and shortness of breath for the last 2 days. Patient also complains of vaginal discharge for the last 3 days after exposure to some detergent and this the soap. Patient denies dizziness, fever, chills, nausea, vomiting, diarrhea, dizziness, chest pain or shortness of breath, vaginal bleeding, dysuria or urinary frequency and urgency. Patient states that she has been using her albuterol inhaler at home with no relief especially in the last 12 hours she has used the inhaler multiple times. MD Complaint: cough, nasal congestion, other (vaginal discharge) -: Sudden, days(s) (2) Severity: severe Severity scale (0 -10): 7 Quality: dull, aching Consistency: intermittent Improves With: nothing Worsens With: nothing Associated Symptoms: denies other symptoms, rhinorrhea, nasal congestion, cough, shortness of breath. denies: fever, chills, myalgias, diaphoresis, headache, sore throat, chest pain, abdominal pain, nausea, vomiting, diarrhea, dysuria, rash, epistaxis, ear pain, other Treatments Prior to Arrival: none - Related Data Previous Rx's Medication Instructions Recorded Last Taken Type Albuterol INH(or & Nicu Only) 2 puff IH QID PRN #1 inhalation 12/18/18 Unknown Rx [ProAir HFA Inhaler] Albuterol Sulfate 1.25 mg IH BID PRN #1 box 12/18/18 Unknown Rx Albuterol Sulfate [Ventolin HFA] 2 puff IH Q4H PRN #1 hfa.aer.ad 12/18/18 Unknown Rx Azithromycin [Zithromax Z-MANISH] 250 mg PO DAILY #6 tablet 12/18/18 Unknown Rx predniSONE [Deltasone] 20 mg PO DAILY #5 tablet 12/18/18 Unknown Rx ALBUTEROL Inhaler(NF) [VENTOLIN 2 puff IH Q4-6H PRN #1 inha 01/17/19 Unknown Rx Inhaler(NF)] ALBUTEROL Inhaler(NF) [VENTOLIN 2 puff IH Q4HRT #1 inha 02/15/19 Unknown Rx Inhaler(NF)] ALBUTEROL NEB's [Proventil 0.083% 2.5 mg IH TID PRN #20 neb 02/15/19 Unknown Rx NEBS] predniSONE [Deltasone] 20 mg PO QDAY #5 tab 02/15/19 Unknown Rx ALBUTEROL NEB's [Proventil 0.083% 2.5 mg IH TID PRN #1 box 03/26/19 Unknown Rx NEBS] Albuterol INH(or & Nicu Only) 2 puff IH QID PRN #1 inh 03/26/19 Unknown Rx [Proair] Albuterol INH(or & Nicu Only) 2 puff IH QID PRN #1 inhalation 08/04/19 Unknown Rx [ProAir HFA Inhaler] predniSONE [Deltasone] 20 mg PO QDAY #5 tab 08/04/19 Unknown Rx ALBUTEROL NEB's [Proventil 0.083% 2.5 mg IH Q6H PRN #75 ml 12/24/19 Unknown Rx NEBS] Benzonatate [Tessalon Perles] 100 mg PO Q8HR #30 capsule 12/24/19 Unknown Rx cephALEXin [Keflex] 500 mg PO Q8HR #30 cap 12/24/19 Unknown Rx methylPREDNISolone [Medrol 4MG 4 mg PO DAILY #21 tab.ds.pk 12/24/19 Unknown Rx DOSEPAK (21 tabs)] metroNIDAZOLE [Flagyl] 500 mg PO Q12HR #14 tab 12/24/19 Unknown Rx Allergies Allergy/AdvReac Type Severity Reaction Status Date / Time No Known Allergies Allergy Verified 08/04/19 07:19 ED Review of Systems ROS: Stated complaint: ASTHMA/THIGH INFECTION Other details as noted in HPI Constitutional: denies: chills, fever Eyes: denies: eye pain, eye discharge, vision change ENT: congestion. denies: ear pain, throat pain Respiratory: cough, shortness of breath, wheezing Cardiovascular: denies: chest pain, palpitations Endocrine: no symptoms reported Gastrointestinal: denies: abdominal pain, nausea, diarrhea Genitourinary: discharge. denies: urgency, dysuria, frequency, hematuria Musculoskeletal: denies: back pain, joint swelling, arthralgia Skin: denies: rash, lesions Neurological: denies: headache, weakness, paresthesias Psychiatric: denies: anxiety, depression Hematological/Lymphatic: denies: easy bleeding, easy bruising ED Past Medical Hx - Past Medical History Previous Medical History?: Yes Hx Asthma: Yes Additional medical history: Bronchitis - Surgical History Past Surgical History?: No - Social History Smoking Status: Never Smoker Substance Use Type: None - Medications Home Medications: Home Medications Medication Instructions Recorded Confirmed Last Taken Type Albuterol INH(or & Nicu Only) 2 puff IH QID PRN #1 inhalation 12/18/18 Unknown Rx [ProAir HFA Inhaler] Albuterol Sulfate 1.25 mg IH BID PRN #1 box 12/18/18 Unknown Rx Albuterol Sulfate [Ventolin HFA] 2 puff IH Q4H PRN #1 hfa.aer.ad 12/18/18 Unknown Rx Azithromycin [Zithromax Z-MANISH] 250 mg PO DAILY #6 tablet 12/18/18 Unknown Rx predniSONE [Deltasone] 20 mg PO DAILY #5 tablet 12/18/18 Unknown Rx ALBUTEROL Inhaler(NF) [VENTOLIN 2 puff IH Q4-6H PRN #1 inha 01/17/19 Unknown Rx Inhaler(NF)] ALBUTEROL Inhaler(NF) [VENTOLIN 2 puff IH Q4HRT #1 inha 02/15/19 Unknown Rx Inhaler(NF)] ALBUTEROL NEB's [Proventil 0.083% 2.5 mg IH TID PRN #20 neb 02/15/19 Unknown Rx NEBS] predniSONE [Deltasone] 20 mg PO QDAY #5 tab 02/15/19 Unknown Rx ALBUTEROL NEB's [Proventil 0.083% 2.5 mg IH TID PRN #1 box 03/26/19 Unknown Rx NEBS] Albuterol INH(or & Nicu Only) 2 puff IH QID PRN #1 inh 03/26/19 Unknown Rx [Proair] Albuterol INH(or & Nicu Only) 2 puff IH QID PRN #1 inhalation 08/04/19 Unknown Rx [ProAir HFA Inhaler] predniSONE [Deltasone] 20 mg PO QDAY #5 tab 08/04/19 Unknown Rx ALBUTEROL NEB's [Proventil 0.083% 2.5 mg IH Q6H PRN #75 ml 12/24/19 Unknown Rx NEBS] Benzonatate [Tessalon Perles] 100 mg PO Q8HR #30 capsule 12/24/19 Unknown Rx cephALEXin [Keflex] 500 mg PO Q8HR #30 cap 12/24/19 Unknown Rx methylPREDNISolone [Medrol 4MG 4 mg PO DAILY #21 tab.ds.pk 12/24/19 Unknown Rx DOSEPAK (21 tabs)] metroNIDAZOLE [Flagyl] 500 mg PO Q12HR #14 tab 12/24/19 Unknown Rx ED Physical Exam - General Limitations: No Limitations General appearance: alert, in no apparent distress - Head Head exam: Present: atraumatic, normocephalic, normal inspection - Eye Eye exam: Present: normal appearance, PERRL, EOMI Pupils: Present: normal accommodation - ENT ENT exam: Present: normal exam, normal orophraynx, mucous membranes moist, TM's normal bilaterally, normal external ear exam, other (Grossly congested nasal passages) - Neck Neck exam: Present: normal inspection, full ROM - Respiratory Respiratory exam: Present: wheezes (Mildly diffuse coarse wheezes throughout). Absent: respiratory distress, chest wall tenderness, accessory muscle use, decreased breath sounds - Cardiovascular Cardiovascular Exam: Present: regular rate, normal rhythm, normal heart sounds. Absent: systolic murmur, diastolic murmur, rubs, gallop - GI/Abdominal GI/Abdominal exam: Present: soft, normal bowel sounds. Absent: tenderness, guarding, hyperactive bowel sounds, hypoactive bowel sounds, organomegaly - Bi-manual exam: Present: other (Pelvic exam deferred) - Extremities Exam Extremities exam: Present: normal inspection, full ROM, normal capillary refill - Back Exam Back exam: Present: normal inspection, full ROM. Absent: tenderness, CVA tenderness (L), muscle spasm, paraspinal tenderness - Neurological Exam Neurological exam: Present: alert, oriented X3, CN II-XII intact, normal gait, reflexes normal - Psychiatric Psychiatric exam: Present: normal affect, normal mood - Skin Skin exam: Present: warm, dry, intact, normal color. Absent: rash ED Course Vital Signs 12/23/19 20:06 Temperature 98.0 F Pulse Rate 74 Respiratory 20 Rate Blood Pressure 138/84 O2 Sat by Pulse 98 Oximetry ED Medical Decision Making - Medical Decision Making This is a nulliparous 29-year-old female who presented to the ED with acute ons et persistent shortness of breath, nasal and sinus congestion, dry cough and wheezing as well as vaginal discharge. In the ED, patient is alert and oriented x3 and is not in distress with normal vital signs. Urinalysis shows significant urinary tract infection. Wet prep was positive for Gardnerella vaginalis. Patient received DuoNeb treatment in the ED as well as Solu-Medrol 125 mg intramuscular injection. On reevaluation, patient's wheezing resolved with treatment. Patient was discharged home on medications including albuterol nebulizers and antibiotics for UTI as well as for bacterial vaginosis. Patient was advised to return to the ED immediately if symptoms get worse, otherwise follow-up with her primary care physician in 7 to 10 days for reevaluation. - Differential Diagnosis asthma; bronchitis; URI; UTI; STD; Bacterial vaginosis Critical care attestation.: If time is entered above; I have spent that time in minutes in the direct care of this critically ill patient, excluding procedure time. ED Disposition Clinical Impression: Acute bronchitis with asthma, Acute upper respiratory infection, Bacterial vaginosis, Acute urinary tract infection Disposition: DC-01 TO HOME OR SELFCARE Is pt being admited?: No Does the pt Need Aspirin: No Condition: Stable Instructions: Acute Bronchitis (ED), Bacterial Vaginosis (ED), Upper Respiratory Infection (ED) Additional Instructions: Take medication with food, drink plenty of fluids and follow-up with your primary care physician in 7 to 10 days for reevaluation. Return to the ED i mmediately if symptoms get worse. Prescriptions: metroNIDAZOLE [Flagyl] 500 mg PO Q12HR #14 tab cephALEXin [Keflex] 500 mg PO Q8HR #30 cap methylPREDNISolone [Medrol 4MG DOSEPAK (21 tabs)] 4 mg PO DAILY #21 tab.ds.pk ALBUTEROL NEB's [Proventil 0.083% NEBS] 2.5 mg IH Q6H PRN #75 ml PRN Reason: Wheezing Benzonatate [Tessalon Perles] 100 mg PO Q8HR #30 capsule Referrals: [facility] [Outside] - 3-5 Days Forms: STI Treatment and Prevention Time of Disposition: : Print Language: CAMBOD[place]
[2019-12-24 01:39] VITALS: BP 130/70
== END 2019-12-24 01:42 | disposition home or self-care (01) ==
LOC: ED 20:02
DX: N76.0 Acute vaginitis (principal); B96.89 Other specified bacterial agents as the cause of diseases classified elsewhere; J45.998 Other asthma; N39.0 Urinary tract infection, site not specified
CPT/HCPCS: 81001; 81025; 87086; 87210; 96372; 99283; J2930

== ENCOUNTER 2021-12-14 19:52 | Emergency (ER) | payer SELFPAY ==
[2021-12-14 21:08] VITALS: BP 113/77
--- NOTE | 2021-12-14 22:20 | Emergency Department Report ---
- General Chief Complaint: Dyspnea/Respdistress Stated Complaint: SOB /MULTI COMPLAINTS Source: patient Mode of arrival: Ambulatory Limitations: No Limitations - History of Present Illness Initial Comments: Patient is a 31-year-old -Thai female with a history of asthma and tobacco abuse who presents to the ED recording of acute onset persistent nasal and sinus congestion, sore throat, dysphagia, left ear pain for the last 2 days. Patient states that the left ear feels muffled with pressure and that the sore throat is worse with eating and swallowing. Patient denies chest pain, shortness of breath, cough, dizziness, syncope, nausea and vomiting, fever, chills, headache, abdominal pain, neck pain, change in vision or palpitations. MD Complaint: sore throat, rhinorrhea, nasal congestion, sinus pain, other (Left ear pain) -: Sudden, days(s) (2) Severity: moderate Severity scale (0 -10): 5 Quality: sharp, aching Consistency: constant Improves With: nothing Worsens With: other (Swallowing) Associated Symptoms: denies other symptoms, rhinorrhea, nasal congestion, sore throat, ear pain (Left ear pain). denies: fever, chills, myalgias, diaphoresis, headache, stiff neck, cough, chest pain, shortness of breath, abdominal pain, nausea, vomiting, diarrhea, dysuria, rash, confusion, right sweats, weight loss, epistaxis, hoarseness Treatments Prior to Arrival: none - Related Data Previous Rx's Medication Instructions Recorded Last Taken Type Albuterol Mdi (or & Nicu Only) 2 puff IH QID PRN #1 inhalation 12/18/18 Unknown Rx [ProAir HFA Inhaler] Albuterol Sulfate 1.25 mg IH BID PRN #1 box 12/18/18 Unknown Rx Albuterol Sulfate [Ventolin HFA] 2 puff IH Q4H PRN #1 hfa.aer.ad 12/18/18 Unknown Rx Azithromycin [Zithromax Z-MANISH] 250 mg PO DAILY #6 tablet 12/18/18 Unknown Rx ALBUTEROL Inhaler(NF) [VENTOLIN 2 puff IH Q4-6H PRN #1 inha 01/17/19 Unknown Rx Inhaler(NF)] ALBUTEROL Inhaler(NF) [VENTOLIN 2 puff IH Q4HRT #1 inha 02/15/19 Unknown Rx Inhaler(NF)] ALBUTEROL NEB's [Proventil 0.083% 2.5 mg IH TID PRN #20 neb 02/15/19 Unknown Rx NEBS] predniSONE [Deltasone] 20 mg PO QDAY #5 tab 02/15/19 Unknown Rx ALBUTEROL NEB's [Proventil 0.083% 2.5 mg IH TID PRN #1 box 03/26/19 Unknown Rx NEBS] Albuterol Mdi (or & Nicu Only) 2 puff IH QID PRN #1 inh 03/26/19 Unknown Rx [Proair] Albuterol Mdi (or & Nicu Only) 2 puff IH QID PRN #1 inhalation 08/04/19 Unknown Rx [ProAir HFA Inhaler] predniSONE [Deltasone] 20 mg PO QDAY #5 tab 08/04/19 Unknown Rx ALBUTEROL NEB's [Proventil 0.083% 2.5 mg IH Q6H PRN #75 ml 12/24/19 Unknown Rx NEBS] Benzonatate [Tessalon Perles] 100 mg PO Q8HR #30 capsule 12/24/19 Unknown Rx cephALEXin [Keflex] 500 mg PO Q8HR #30 cap 12/24/19 Unknown Rx metroNIDAZOLE [Flagyl] 500 mg PO Q12HR #14 tab 12/24/19 Unknown Rx ALBUTEROL NEB's [Proventil 0.083% 2.5 mg IH TID PRN #1 box 03/21/20 Unknown Rx NEBS] Albuterol Mdi (or & Nicu Only) 2 puff IH QID PRN #8.5 gram 03/21/20 Unknown Rx [ProAir HFA Inhaler] Amoxicillin [Amoxicillin TAB] 875 mg PO Q12H #20 tab 12/14/21 Unknown Rx Ibuprofen [Motrin] 600 mg PO Q8H PRN #30 tablet 12/14/21 Unknown Rx methylPREDNISolone [Medrol 4MG 4 mg PO DAILY #21 tab.ds.pk 12/14/21 Unknown Rx DOSEPAK (21 tabs)] metroNIDAZOLE [Flagyl] 500 mg PO Q12HR #14 tab 12/14/21 Unknown Rx predniSONE [Deltasone] 40 mg PO DAILY #10 tablet 12/14/21 Unknown Rx Allergies Allergy/AdvReac Type Severity Reaction Status Date / Time No Known Allergies Allergy Verified 08/04/19 07:19 ED Review of Systems ROS: Stated complaint: SOB /MULTI COMPLAINTS Other details as noted in HPI Constitutional: denies: chills, fever Eyes: denies: eye pain, eye discharge, vision change ENT: ear pain (Left ear pain), throat pain, congestion Respiratory: denies: cough, shortness of breath, wheezing Cardiovascular: denies: chest pain, palpitations Endocrine: no symptoms reported Gastrointestinal: denies: abdominal pain, nausea, diarrhea Genitourinary: denies: urgency, dysuria, discharge Musculoskeletal: denies: back pain, joint swelling, arthralgia Skin: denies: rash, lesions Neurological: denies: headache, weakness, paresthesias Psychiatric: denies: anxiety, depression Hematological/Lymphatic: denies: easy bleeding, easy bruising ED Past Medical Hx - Past Medical History Previous Medical History?: Yes Hx Asthma: Yes (DX AT 4 YEARS OLD) Additional medical history: Bronchitis - Surgical History Past Surgical History?: Yes - Social History Smoking Status: Never Smoker Substance Use Type: None - Medications Home Medications: Home Medications Medication Instructions Recorded Confirmed Last Taken Type Albuterol Mdi (or & Nicu Only) 2 puff IH QID PRN #1 inhalation 12/18/18 Unknown Rx [ProAir HFA Inhaler] Albuterol Sulfate 1.25 mg IH BID PRN #1 box 12/18/18 Unknown Rx Albuterol Sulfate [Ventolin HFA] 2 puff IH Q4H PRN #1 hfa.aer.ad 12/18/18 Unknown Rx Azithromycin [Zithromax Z-MANISH] 250 mg PO DAILY #6 tablet 12/18/18 Unknown Rx ALBUTEROL Inhaler(NF) [VENTOLIN 2 puff IH Q4-6H PRN #1 inha 01/17/19 Unknown Rx Inhaler(NF)] ALBUTEROL Inhaler(NF) [VENTOLIN 2 puff IH Q4HRT #1 inha 02/15/19 Unknown Rx Inhaler(NF)] ALBUTEROL NEB's [Proventil 0.083% 2.5 mg IH TID PRN #20 neb 02/15/19 Unknown Rx NEBS] predniSONE [Deltasone] 20 mg PO QDAY #5 tab 02/15/19 Unknown Rx ALBUTEROL NEB's [Proventil 0.083% 2.5 mg IH TID PRN #1 box 03/26/19 Unknown Rx NEBS] Albuterol Mdi (or & Nicu Only) 2 puff IH QID PRN #1 inh 03/26/19 Unknown Rx [Proair] Albuterol Mdi (or & Nicu Only) 2 puff IH QID PRN #1 inhalation 08/04/19 Unknown Rx [ProAir HFA Inhaler] predniSONE [Deltasone] 20 mg PO QDAY #5 tab 08/04/19 Unknown Rx ALBUTEROL NEB's [Proventil 0.083% 2.5 mg IH Q6H PRN #75 ml 12/24/19 Unknown Rx NEBS] Benzonatate [Tessalon Perles] 100 mg PO Q8HR #30 capsule 12/24/19 Unknown Rx cephALEXin [Keflex] 500 mg PO Q8HR #30 cap 12/24/19 Unknown Rx metroNIDAZOLE [Flagyl] 500 mg PO Q12HR #14 tab 12/24/19 Unknown Rx ALBUTEROL NEB's [Proventil 0.083% 2.5 mg IH TID PRN #1 box 03/21/20 Unknown Rx NEBS] Albuterol Mdi (or & Nicu Only) 2 puff IH QID PRN #8.5 gram 03/21/20 Unknown Rx [ProAir HFA Inhaler] Amoxicillin [Amoxicillin TAB] 875 mg PO Q12H #20 tab 12/14/21 Unknown Rx Ibuprofen [Motrin] 600 mg PO Q8H PRN #30 tablet 12/14/21 Unknown Rx methylPREDNISolone [Medrol 4MG 4 mg PO DAILY #21 tab.ds.pk 12/14/21 Unknown Rx DOSEPAK (21 tabs)] metroNIDAZOLE [Flagyl] 500 mg PO Q12HR #14 tab 12/14/21 Unknown Rx predniSONE [Deltasone] 40 mg PO DAILY #10 tablet 12/14/21 Unknown Rx ED Physical Exam - General Limitations: No Limitations General appearance: alert, in no apparent distress - Head Head exam: Present: atraumatic, normocephalic, normal inspection - Eye Eye exam: Present: normal appearance, PERRL, EOMI Pupils: Present: normal accommodation - ENT ENT exam: Present: mucous membranes moist, normal external ear exam, other (Grossly congested nasal passages; mildly erythematous oropharynx and tonsils; erythematous bulging bilateral tympanic membranes) - Neck Neck exam: Present: normal inspection, full ROM, lymphadenopathy (Palpable anterior cervical lymphadenopathy) - Respiratory Respiratory exam: Present: normal lung sounds bilaterally. Absent: respiratory distress, wheezes, rales, rhonchi, stridor, chest wall tenderness, accessory muscle use, decreased breath sounds, prolonged expiratory - Cardiovascular Cardiovascular Exam: Present: regular rate, normal rhythm, normal heart sounds. Absent: systolic murmur, diastolic murmur, rubs, gallop - GI/Abdominal GI/Abdominal exam: Present: soft, normal bowel sounds. Absent: tenderness, guarding, rebound, rigid, hyperactive bowel sounds, hypoactive bowel sounds - Extremities Exam Extremities exam: Present: normal inspection, full ROM, normal capillary refill - Back Exam Back exam: Present: normal inspection, full ROM. Absent: tenderness, CVA tenderness (R), CVA tenderness (L), muscle spasm, paraspinal tenderness, vertebral tenderness - Neurological Exam Neurological exam: Present: alert, oriented X3, CN II-XII intact, normal gait, reflexes normal - Psychiatric Psychiatric exam: Present: normal affect, normal mood - Skin Skin exam: Present: warm, dry, intact, normal color. Absent: rash ED Course Vital Signs 12/14/21 21:06 Temperature 98.5 F Pulse Rate 63 Respiratory 20 Rate Blood Pressure 113/77 O2 Sat by Pulse 100 Oximetry ED Medical Decision Making - Medical Decision Making This is a 31-year-old -Thai female with a history of asthma and tobacco abuse who presents to the ED recording of acute onset persistent nasal and sinus congestion, sore throat, dysphagia, left ear pain for the last 2 days. Patient states that the left ear feels muffled with pressure and that the sore throat is worse with eating and swallowing. In the ED, patient is alert and oriented x3 and is not in any distress. Patient is hemodynamically stable. Patient was treated for pain in the ED and discharged home on pain medications based on the history and physical exam findings. Patient was therefore advised return to the ED immediately if symptoms get worse, otherwise follow-up with her primary care physician in 7 to 10 days for reevaluation. - Differential Diagnosis URI; sinusitis; otitis media; pharyngitis; rhinitis Critical care attestation.: If time is entered above; I have spent that time in minutes in the direct care of this critically ill patient, excluding procedure time. ED Disposition Clinical Impression: Acute upper respiratory infection, Acute bacterial pharyngitis, Acute otitis media with effusion of both ears Disposition: HOME / SELF CARE / HOMELESS Is pt being admited?: No Does the pt Need Aspirin: No Condition: Stable Instructions: Upper Respiratory Infection, Adult, [id number], Pharyngitis, [id number], Otitis Media, Adult, [id number] Additional Instructions: Take medication with food, drink plenty fluids and follow-up with your primary care physician in 7 to 10 days for reevaluation. Return to the ED immediately if symptoms get worse. Prescriptions: Amoxicillin [Amoxicillin TAB] 875 mg PO Q12H #20 tab predniSONE [Deltasone] 40 mg PO DAILY #10 tablet metroNIDAZOLE [Flagyl] 500 mg PO Q12HR #14 tab methylPREDNISolone [Medrol 4MG DOSEPAK (21 tabs)] 4 mg PO DAILY #21 tab.ds.pk Ibuprofen [Motrin] 600 mg PO Q8H PRN #30 tablet PRN Reason: Pain Referrals: [facility] [Provider Group] - 7-10 days Time of Disposition: 22:20 Print Language: SCOTTISH
[2021-12-14] MEDS ORDERED: IBUPROFEN 600 MG TAB PO ONE (22:40)
[2021-12-14] MEDS ORDERED: predniSONE 20 MG TAB PO ONE (22:40)
== END 2021-12-14 23:04 | disposition home or self-care (01) ==
LOC: ED 19:52
DX: J06.9 Acute upper respiratory infection, unspecified (principal); J02.8 Acute pharyngitis due to other specified organisms; B96.89 Other specified bacterial agents as the cause of diseases classified elsewhere; H65.193 Other acute nonsuppurative otitis media, bilateral; J45.909 Unspecified asthma, uncomplicated; Z79.899 Other long term (current) drug therapy
CPT/HCPCS: 99282